=== PATIENT | female | born 1940 | race Caucasian/White ===

== ENCOUNTER 2017-07-09 13:11 | Outpatient (CLI) | payer MEDICARE, OTHER | END 2017-07-09 13:12 | disposition home or self-care (01) | LOC: BICMAMMO 13:11 | PROVIDERS: ATTEND Obstetrics & Gynecology | DX: Z12.31 Encounter for screening mammogram for malignant neoplasm of breast (principal) | CPT/HCPCS: 77063; 77067 ==